=== PATIENT | male | born 1980 | race Two or more races ===

== ENCOUNTER 2024-01-14 19:38 | Emergency (ER) | payer SELFPAY ==
[~2024-01-14] VITALS: Ht 185.4 cm; Wt 90.7 kg
[2024-01-14 20:15] VITALS: BP 150/96; PULSE 90; RESP 18; TEMP 98; O2SAT 98
[2024-01-14] MEDS: FAMOTIDINE 20 MG TAB PO ONE (20:40)
[2024-01-14] MEDS: ONDANSETRON ODT 4 MG TAB PO ONE (20:40)
[2024-01-14] MEDS: KETOROLAC TROMETH 60MG/2ML VIAL IM ONE (20:40)
[2024-01-14] MEDS ORDERED: IBUP-1456 PO (21:42)
== END 2024-01-14 21:57 | disposition home or self-care (01) ==
LOC: ER 19:38 → EDBD 19:38 → ER 21:54
DX: G89.21 Chronic pain due to trauma (principal); M79.671 Pain in right foot; M79.672 Pain in left foot
CPT/HCPCS: 96372; 99283; J1885; Q0162

== ENCOUNTER 2024-03-26 10:34 | Emergency (ER) | payer MEDICAID, OTHER ==
[~2024-03-26] VITALS: Ht 180.3 cm; Wt 96.0 kg
[~2024-03-26 10:34] MED LIST: IBUP-1456 PO
[2024-03-26] MEDS: SODIUM CHLORIDE 0.9% 1,000 ML IV ONE ×3 (11:17→21:23)
[2024-03-26 11:23] LABS: Basophils # (auto) 0 10 ^3/uL (0-0.2); Basophils % (auto) 0.3 % (0.0-2.0); Eosinophils # (auto) 0.1 10 ^3/uL (0-0.8); Eosinophils % (auto) 0.9 % (0.0-7.0); Hematocrit 49.1 % (41.0-53.0); Hemoglobin 16.6 g/dL (13.5-17.5); Lymphocytes # (auto) 0.3 10 ^3/uL (0.4-5.4); Lymphocytes % (auto) 2.5 % (10.0-50.0); Mean Corpuscular Hemoglobin 31.6 pg (28.0-32.0); Mean Corpuscular Hgb Conc. 33.8 g/dL (32.0-36.0); Mean Corpuscular Volume 93.6 fL (80.0-100.0); Monocytes # (auto) 0.7 10 ^3/uL (0-1.3); Monocytes % (auto) 5.4 % (0.0-12.0); Neutrophils # (auto) 12.3 10 ^3/uL (1.6-8.6); Neutrophils % (auto) 90.9 % (37.0-80.0); Platelet Count (auto) 236 10^3/uL (140-450); Red Blood Cells 5.25 10^6/uL (4.5-5.90); Red Cell Distribution Width 14.3 % (11.8-14.3); White Blood Cell 13.6 10^3/uL (4.4-10.8)
[2024-03-26 11:28] VITALS: PULSE 74; RESP 22; O2SAT 95
--- NOTE | 2024-03-26 11:30 | ED.PDOC ---
History of Present Illness HPI Comments HPI: Poor Historian. 43-year-old male presents to emergency department for evaluation of generalized upper body aches. Patient admits to use of methamphetamine four days ago by smoking. Denies use of any other drugs or alcohol. Patient states that he feels dehydrated. Denies any focal complaint. Vitals: temp:98.3 RR: 18 02 sat: 98 % RA heart rate: 96 BP: 113/74 PMH: denies PSH: titanium rods in bilateral legs social history: denies tobacco use, denies ETOH use, endorses drug use(METH 4 days prior) medications: denies allergies: NKDA REVIEW OF SYSTEMS: CONSTITUTIONAL: Denies acute: fever, diaphoresis, chills, HEAD: Denies acute: headache, photophobia Eyes: Denies acute: Double vision, vision loss, eye pain, eye discharge. EARS: Denies acute: tinnitus, hearing loss, ear discharge, ear pain, THROAT: Denies acute: sore throat, swelling, difficulty swallowing , pain with swallowing, change in voice. NECK: Denies acute: neck pain, neck swelling, stiff neck. HEART: Denies acute : chest pain, palpitations, LUNGS: Denies acute: SOB, wheezing, cough, hemoptysis ABDOMEN: Denies acute: abdominal pain, Nausea, Vomiting, diarrhea, melena , hematemesis, hematochezia SKIN: Denies acute: rash, redness, lesions, itchiness. EXTREMITIES: Denies acute: calf pain, numbness, tingling, weakness, denies pain in extremity. Denies acute: Low back pain. Neuro: Denies acute: focal neurological deficit, motor or sensory focal neurological deficit, tremors, seizure like activity, confusion, dizziness, change in mental status, loss of bowel or bladder function, cauda equina like symptoms. : Denies acute: dysuria, hematuria, flank pain, increase in urinary frequency. PSYCH: Denies acute: hallucination, suicidal ideation, homicidal ideation. PHYSICAL EXAM: General: no acute distress, awake and alert. Head: normocephalic, atraumatic. Neck: supple, trachea is midline, no swelling. Throat: Normal phonation. Eyes:, no erythema, no purulent discharge, no proptosis, no icterus. Heart: regular rate, regular rhythm, no significant murmur appreciated. Lungs: no apparent respiratory distress, Able to speak in full sentences. No wheezing, no rhonchi, no crackles. No stridors Clear to auscultation bilaterally. Abdomen: non tender to palpation, non distended, soft, no guarding, no rebound, + bowel sounds. Neuro: Awake, Alert, oriented to name, self, situation, follows commands GCS=15. Speech is normal. Skin: no petechia, no purpura, no cyanosis, non-pale, not jaundice. Lower extremities: --no - Pitting edema no deformity, no focal swelling, no calf TTP. Makes eye contact. moves all four extremities. Face: no apparent facial droop. Ambulating in the ED independently. No nuchal rigidity, Kernig's sign, Brudzinski's sign, no meningeal signs. Chief Complaint: Abdominal Pain Time Seen by MD: 10:45 Primary Care Provider: none Reviewed Notes: Nurses Notes, Allergies Allergies: Coded Allergies: NO KNOWN ALLERGIES (Unverified , 03/26/24) Home Meds Active Scripts Ibuprofen (Ibuprofen) 800 Mg Tab, 800 MG PO Q8HP PRN for 7 Days, #21 TAB Prov:IRVING CORTEZ [facility] 01/14/24 Information Source: Patient Past Medical History PAST MEDICAL HISTORY: Denies Surgical History: Denies all surgeries Family History Family History: Reviewed,noncontributory to illness Social History Smoker: Non-Smoker Alcohol: Denies ETOH Use Drugs: Methamphetamine Lives In: Homeless Was a procedure done? Was a procedure done?: No Differential Dx Considerations may include: Includes but not limited to thyroid disease, encephalopathy, electrolyte abnormality, sepsis, infection, intracranial pathology, drug adverse effects, arrhythmia, kidney insufficiency, ACS, CVA, malignancy, anemia, rhabdomyolysis X-Ray, Labs, Meds, VS Vital Signs Date Time Temp Pulse Resp B/P (MAP) Pulse Ox O2 Delivery O2 Flow Rate FiO2 03/26/24 20:11 74 18 131/84 (100) 99 03/26/24 18:40 78 19 96 Room Air 03/26/24 17:55 98.1 78 19 135/85 (102) 96 98.1 03/26/24 14:55 98.0 64 18 125/86 (99) 99 98.0 03/26/24 11:28 74 22 95 Room Air* 0 21 03/26/24 11:27 98.4 74 22 127/76 (93) 95 98.4 03/26/24 10:42 98.3 96 18 113/74 (87) 98 Lab Test 03/26/24 22:02 03/26/24 20:03 03/26/24 19:10 03/26/24 13:48 Range/Units Lactic Acid Level 1.8 2.2 *H 2.6 *H 0.4-2.0 mmol/L Urine Color Light-yellow Yellow Urine Clarity Clear Clear Urine pH 6.5 5.0-9.0 Urine Specific Piffard 1.012 1.001-1.035 Urine Protein Negative Negative Urine Ketones Negative Negative Urine Blood Negative Negative /uL Urine Nitrite Negative Negative Urine Bilirubin Negative Negative Urine Urobilinogen Normal Negative mg/dL Urine Leukocyte Esterase Negative Negative /uL Urine RBC None seen 0 - 3 /hpf Urine WBC 1 0 - 3 /hpf Urine Squamous Epithelial Cells None seen <5 /hpf Urine Bacteria None seen None Seen /hpf Urine Glucose Normal Normal mg/dL Urine Opiates Screen Neg NEGATIVE Urine Fentanyl Screen Neg NEGATIVE Urine Barbiturates Screen Neg NEGATIVE Urine Phencyclidine Screen Neg NEGATIVE Urine Amphetamines Screen Pos NEGATIVE Urine Benzodiazepines Screen Neg NEGATIVE Urine Cocaine Screen Neg NEGATIVE Urine Cannabinoids Screen Neg NEGATIVE Test 03/26/24 10:07 Range/Units White Blood Count 13.6 H 4.4-10.8 10^3/uL Red Blood Count 5.25 4.5-5.90 10^6/uL Hemoglobin 16.6 13.5-17.5 g/dL Hematocrit 49.1 41.0-53.0 % Mean Corpuscular Volume 93.6 80.0-100.0 fL Mean Corpuscular Hemoglobin 31.6 28.0-32.0 pg Mean Corpuscular Hemoglobin Concent 33.8 32.0-36.0 g/dL Red Cell Distribution Width 14.3 11.8-14.3 % Platelet Count 236 140-450 10^3/uL Mean Platelet Volume 8.4 6.9-10.8 fL Neutrophils (%) (Auto) 90.9 H 37.0-80.0 % Lymphocytes (%) (Auto) 2.5 L 10.0-50.0 % Monocytes (%) (Auto) 5.4 0.0-12.0 % Eosinophils (%) (Auto) 0.9 0.0-7.0 % Basophils (%) (Auto) 0.3 0.0-2.0 % Neutrophils # (Auto) 12.3 H 1.6-8.6 10 ^3/uL Lymphocytes # (Auto) 0.3 L 0.4-5.4 10 ^3/uL Monocytes # (Auto) 0.7 0-1.3 10 ^3/uL Eosinophils # (Auto) 0.1 0-0.8 10 ^3/uL Basophils # (Auto) 0 0-0.2 10 ^3/uL Nucleated Red Blood Cells 0.0 % Sodium Level 137 136-145 mmol/L Potassium Level 4.0 3.5-5.1 mmol/L Chloride Level 102 98-107 mmol/L Carbon Dioxide Level 26 20-31 mmol/L Anion Gap 9 5-15 Blood Urea Nitrogen 18 9-23 mg/dL Creatinine 1.26 0.700-1.30 mg/dL Glomerular Filtration Rate Calc 73 >90 mL/min BUN/Creatinine Ratio 14.3 10.0-20.0 Serum Glucose 109 H 74-106 mg/dL Lactic Acid Level 2.6 *H 0.4-2.0 mmol/L Calcium Level 10.4 8.7-10.4 mg/dL Magnesium Level 2.1 1.6-2.6 mg/dL Total Bilirubin 0.8 0.2-1.0 mg/dL Aspartate Amino Transferase (AST) 28 13-40 U/L Alanine Aminotransferase (ALT) 39 7-40 U/L Alkaline Phosphatase 116 46-116 U/L Creatine Kinase 153 46-171 U/L Troponin I High Sensitivity < 3 L </=54 ng/L Total Protein 7.9 5.7-8.2 g/dL Albumin 4.9 H 3.2-4.8 g/dL Lipase 48 12-53 U/L Current Medications Medications (Trade) Dose Ordered Sig/Sean Route Start Time Stop Time Status Last Admin Sodium Chloride 1,000 ml @ 1,000 mls/hr Q1H ONCE IV 03/26/24 11:00 03/26/24 11:59 DC 03/26/24 11:24 Lorazepam (Ativan Inj) 1 mg ONCE ONCE IV 03/26/24 11:30 03/26/24 11:31 DC 03/26/24 11:36 Sodium Chloride 1,000 ml @ 1,000 mls/hr Q1H ONCE IV 03/26/24 14:30 03/26/24 15:29 DC 03/26/24 16:14 Sodium Chloride 1,000 ml @ 1,000 mls/hr Q1H ONCE IV 03/26/24 21:30 03/26/24 22:29 DC 03/26/24 21:23 [place] [id number] Ph: [phone] DIAGNOSTIC IMAGING Diagnostic Imaging Report : [id number] Signed PATIENT: ASIM CASTRO JRACCT: [id number] UNIT: [id number] : 1980 LOC: ER ROOM / BED: / AGE / SEX: 43 / M ADM STATUS: REG ER SERVICE 36 ORDERING PHYSICIAN: YUN SANCHEZ DO PROCEDURE(s): CXRP - CHEST PORTABLE REASON: chills ORDER NUMBER(s): [id number], ACCESSION NUMBER(s): [id number] CHEST RADIOGRAPH Indication: chills Technique: Single frontal view of the chest was obtained COMPARISON: None FINDINGS: Lines and Tubes: None Lungs: Clear Pleura: No effusion. No pneumothorax. Cardiomediastinal contours: Unremarkable Bones: Unremarkable IMPRESSION: 1. No acute disease. ATED BY: ALYCIA OLIVARES MD DICTATED DATE/TIME: 03/26/242028 SIGNED BY: ALYCIA OLIVARES MD SIGNED DATE/TIME: 03/26/242028 CC: Time of 1ST Reevaluation: 22:46 Reevaluation 1ST: Resolved Patient Education/Counseling: Diagnosis, Treatment Family Education/Counseling: No Family Present Comments Patient presented with the above HPI.--generalized body aches and tachycardic----workup was initiated. patient was found with the above mentioned diagnosis. Patient was given: Fluids and Ativan Patient ED course and VS have been stabilized. Patient has been reassessed in the ED and remained in a stable condition. Pertinent incidental findings were discussed with the patient and/or family. Patient/family voices understanding and is agreeable with plan. Patient has been observed in the ED adequate length of time to insure improvement/stability. patient was discharged home in a stable condition. All the reports of any imaging studies that were ordered by myself were reviewed by myself. Departure 1 Departure Time of Disposition: 20:42 Impression: Primary Impression: Homelessness Additional Impressions: Methamphetamine abuse Generalized body aches Dehydration Disposition: HOME / SELF CARE / HOMELESS Condition: Stable Additional Instructions: Additional discharge instructions: You MUST follow-up with your primary care/family doctor in 1 to 2 days. If you are unable to see your primary care/family doctor, please return to our emergency room for re-assessment and re-evaluation in 1 to 2 days. Return to the emergency room here in our facility or to the nearest ER [facility] if your symptoms change or worsen. CONSULTATIONS: you MUST Follow-up for consultation as soon as possible with: -cardiology in 1-2 days. Please call for appointment You MUST call the consultants office yourself to make an appointment. You may need to arrange that through your insurance and/or your primary/family doctor. If you are unable to see the qm consultant in 1 to 2 days, you must return to our emergency room (or any other ER of your choice) for re-assessment and re- evaluation. Adequate fluid hydration. Discharged With: Self Critical Care Note Critical Care Time?: No I personally scribed for YUN SANCHEZ DO ([email or web address]) on 03/26/24 at 11:30. Electronically submitted by Ailin Moe ([email or web address]). I personally scribed for YUN SANCHEZ DO ([email or web address]) on 03/26/24 at 11:44. Electronically submitted by Ailin Moe ([email or web address]). I personally scribed for YUN SANCHEZ DO ([email or web address]) on 03/26/24 at 19:57. Electronically submitted by Ailin Moe ([email or web address]). I personally scribed for YUN SANCHEZ DO ([email or web address]) on 03/26/24 at 21:09. Electronically submitted by Ailin Moe ([email or web address]). YUN SANCHEZ DO Mar 26, 2024 11:30
[2024-03-26] MEDS: LORazepam 2MG/ML-1ML VIAL IV ONE (11:36)
[2024-03-26 12:09] LABS: Alanine Aminotransferase 39 U/L (7-40); Albumin 4.9 g/dL (3.2-4.8); Alkaline Phosphatase 116 U/L (46-116); Anion Gap 9 (5-15); Aspartate Aminotransferase 28 U/L (13-40); BUN/Creatinine Ratio 14.3 (10.0-20.0); Blood Urea Nitrogen 18 mg/dL (9-23); Calcium 10.4 mg/dL (8.7-10.4); Carbon Dioxide 26 mmol/L (20-31); Chloride 102 mmol/L (98-107); Glucose 109 mg/dL (74-106); Lipase 48 U/L (12-53); Sodium 137 mmol/L (136-145)
[2024-03-26 12:10] LABS: Bilirubin, Total 0.8 mg/dL (0.2-1.0); Total Protein 7.9 g/dL (5.7-8.2)
[2024-03-26 12:14] LABS: Lactic Acid w/Reflex 2.6 mmol/L (0.4-2.0)
[2024-03-26 13:55] LABS: Magnesium 2.1 mg/dL (1.6-2.6)
[2024-03-26 19:11] LABS: Urine Bacteria None Seen /hpf (None Seen)
[2024-03-26 19:26] LABS: Urine Blood Negative /uL (Negative); Urine Clarity Clear (Clear); Urine Color Light-Yellow (Yellow); Urine Protein, UAD Negative (Negative); Urine Specific Gravity 1.012 (1.001-1.035); Urine Urobilinogen Normal (Negative); Urine WBC 1 /hpf (0 - 3); Urine pH 6.5 (5.0-9.0)
[2024-03-26 19:38] LABS: Amphetamine Screen, Urine Pos (NEGATIVE); Benzodiazephine Screen, Urine Neg (NEGATIVE)
[2024-03-26 19:39] LABS: Barbiturate Scree,Urine Neg (NEGATIVE); Cannabinoid Screen, Urine Neg (NEGATIVE); Cocaine Screen, Urine Neg (NEGATIVE); Opiate Scree,Urine Neg (NEGATIVE); Phencyclidine Screen, Urine Neg (NEGATIVE)
--- NOTE | 2024-03-26 20:31 | DVH ---
CHEST RADIOGRAPH Indication: chills Technique: Single frontal view of the chest was obtained COMPARISON: None FINDINGS: Lines and Tubes: None Lungs: Clear Pleura: No effusion. No pneumothorax. Cardiomediastinal contours: Unremarkable Bones: Unremarkable IMPRESSION: 1. No acute disease.
[2024-03-26 21:17] LABS: Lactic Acid w/Reflex 2.2 mmol/L (0.4-2.0)
[2024-03-26 23:15] VITALS: BP 128/88; PULSE 82; RESP 18; TEMP 98.7; O2SAT 96
== END 2024-03-26 23:15 | disposition home or self-care (01) ==
LOC: EDBD 10:34 → ER 10:34
DX: E86.0 Dehydration (principal); M79.10 Myalgia, unspecified site; F15.10 Other stimulant abuse, uncomplicated; Z59.00 Homelessness unspecified; Z79.899 Other long term (current) drug therapy
CPT/HCPCS: 36415; 71045; 80053; 80307; 81001; 82550; 83605; 83690; 83735; 84484; 85025; 96361; 96374; 99285; J2060; J7030

== ENCOUNTER 2025-02-27 16:22 | Emergency (ER) | payer MEDICAID ==
[~2025-02-27] VITALS: Ht 180.3 cm; Wt 90.9 kg
[2025-02-27] MEDS: ONDANSETRON ODT 4 MG TAB PO ONE (16:45)
[2025-02-27] MEDS: KETOROLAC TROMETH 60MG/2ML VIAL IM ONE (16:45)
--- NOTE | 2025-02-27 17:08 | ED.PDOC ---
History of Present Illness HPI Comments This is a homeless 44 year old male ALISSON presenting to the ED with chief complaint of flu-like symptoms. Patient reports that he has been experiencing body aches with associated cough, fever, nasal congestion, and generalized weakness for the past few days. Patient denies any N/V/D, abdominal pain, chills, chest pain, or SOB. Vital signs were stable on arrival. Chief Complaint: Flu like Time Seen by MD: 17:05 Primary Care Provider: none Reviewed Notes: Nurses Notes, Boarding Specialist Notes, Medications, Allergies Allergies: Coded Allergies: NO KNOWN ALLERGIES (Unverified , 03/26/24) Home Meds Active Scripts Ibuprofen (Ibuprofen) 800 Mg Tab, 800 MG PO Q8HP PRN for 7 Days, #21 TAB Prov:IRVING CORTEZ [facility] 01/14/24 Information Source: Patient, Emergency Med Personnel Mode of Arrival: EMS Severity: Moderate Timing: Days Duration: Since onset Prehospital treatment: None Past Medical History PAST MEDICAL HISTORY: Denies Surgical History: Denies all surgeries Family History Family History: Reviewed,noncontributory to illness Social History Smoker: Non-Smoker Alcohol: Denies ETOH Use Drugs: Methamphetamine Lives In: Homeless Constitutional: reports: fever, malaise, weakness; denies: chills, diaphoresis, fatigue, sweats, others EENTM: reports: nose congestion; denies: blurred vision, double vision, ear bleeding, ear discharge, ear drainage, ear pain, ear ringing, eye pain, eye re dness, hearing loss, mouth pain, mouth swelling, nasal discharge, nose bleeding, nose pain, photophobia, tearing, throat pain, throat swelling, voice changes, others Respiratory: reports: cough; denies: hemoptysis, orthopnea, SOB at rest, shortness of breath, SOB with excertion, stridor, wheezing, others Cardiovascular: denies: chest pain, dizzy spells, diaphoresis, Dyspnea on exertion, edema, irregular heart beat, left arm pain, lightheadedness, palpitations, PND, syncope, others Gastrointestinal: denies: abdomen distended, abdominal pain, blood streaked bowels, constipated, diarrhea, dysphagia, difficulty swallowing, hematemesis, melena, nausea, poor appetite, poor fluid intake, rectal bleeding, rectal pain, vomiting, others Genitourinary: denies: burning, dysuria, flank pain, frequency, hematuria, incontinence, penile discharge, penile sore, pain, testicle pain, testicle swelling, urgency, others Neurological: denies: dizziness, fainting, headache, left sided numbness, left sided weakness, numbness, paresthesia, pre-existing deficit, right sided numbness, right sided weakness, seizure, speech problems, tingling, tremors, weakness, others Musculoskeletal: denies: back pain, gout, joint pain, joint swelling, muscle pain, muscle stiffness, neck pain, others Integumetry: denies: bruises, change in color, change in hair/nails, dryness, laceration, lesions, lumps, rash, wounds, others Allergic/Immunocompromised: denies: Difficulty Healing, Frequent Infections, Hives, Itching, others Hematologic/Lymphatic: denies: anemia, blood clots, easy bleeding, easy bruising, swollen glands, others Endocrine: denies: excessive hunger, excessive sweating, excessive thirst, excessive urination, flushing, intolerance to cold, intolerance to heat, unexplained weight gain, unexplained weight loss, others Psychiatric: denies: anxiety, bipolar disorder, depression, hopeless, panic disorder, schizophrenia, sleepless, suicidal, others All Other Systems: Reviewed and Negative Physical Exam General Appearance: Mild Distress (Moderate distress due to the patient's concerns. Patient was not well kempt and dirty at time of evaluation.), Normal HEENT: Normal ENT Inspection, Pharynx Normal, TMs Normal Neck: Full Range of Motion, Non-Tender, Normal, Normal Inspection Respiratory: Chest Non-Tender, Lungs Clear, No Accessory Muscle Use, No Respiratory Distress, Normal Breath Sounds Cardiovascular: No Edema, No JVD, No Murmur, No Gallop, Normal Peripheral Pulses, Regular Rate/Rhythm Breast Exam: Deferred Gastrointestinal: Other (Diffuse nonspecific epigastric tenderness to palpation. No signs of trauma. No pulsatile masses.) Genitalia: Deferred Pelvic: Deferred Rectal: Deferred Extremities: No calf tenderness, Normal inspection, Non-tender Neurologic: Alert Cerebellar Function: NOT DONE Reflexes: NOT DONE Skin: Dry, Normal Color, Warm Lymphatic: No Adenopathy Was a procedure done? Was a procedure done?: No Differential Dx Considerations may include: Sepsis, electrolyte abnormality, pneumonia, viral upper respiratory illness X-Ray, Labs, Meds, VS Vital Signs Date Time Temp Pulse Resp B/P (MAP) Pulse Ox O2 Delivery O2 Flow Rate FiO2 02/27/25 20:15 98.7 99 16 110/77 (88) 97 98.7 02/27/25 16:22 98.6 92 20 140/74 97 98.6 Lab Test 02/27/25 17:11 Range/Units White Blood Count 11.0 H 4.4-10.8 10^3/uL Red Blood Count 4.65 4.5-5.90 10^6/uL Hemoglobin 14.8 13.5-17.5 g/dL Hematocrit 41.9 41.0-53.0 % Mean Corpuscular Volume 90.0 80.0-100.0 fL Mean Corpuscular Hemoglobin 31.7 28.0-32.0 pg Mean Corpuscular Hemoglobin Concent 35.3 32.0-36.0 g/dL Red Cell Distribution Width 13.2 11.8-14.3 % Platelet Count 281 140-450 10^3/uL Mean Platelet Volume 8.6 6.9-10.8 fL Neutrophils (%) (Auto) 76.2 37.0-80.0 % Lymphocytes (%) (Auto) 11.2 10.0-50.0 % Monocytes (%) (Auto) 11.0 0.0-12.0 % Eosinophils (%) (Auto) 0.9 0.0-7.0 % Basophils (%) (Auto) 0.7 0.0-2.0 % Neutrophils # (Auto) 8.4 1.6-8.6 10 ^3/uL Lymphocytes # (Auto) 1.2 0.4-5.4 10 ^3/uL Monocytes # (Auto) 1.2 0-1.3 10 ^3/uL Eosinophils # (Auto) 0.1 0-0.8 10 ^3/uL Basophils # (Auto) 0.1 0-0.2 10 ^3/uL Nucleated Red Blood Cells 0.0 % Sodium Level 132 L 136-145 mmol/L Potassium Level 3.5 3.5-5.1 mmol/L Chloride Level 98 98-107 mmol/L Carbon Dioxide Level 20 20-31 mmol/L Anion Gap 14 5-15 Blood Urea Nitrogen 20 9-23 mg/dL Creatinine 1.19 0.700-1.30 mg/dL Glomerular Filtration Rate Calc 77 >90 mL/min BUN/Creatinine Ratio 16.8 10.0-20.0 Serum Glucose 136 H 74-106 mg/dL Calcium Level 9.4 8.7-10.4 mg/dL Current Medications Medications (Trade) Dose Ordered Sig/Sean Route Start Time Stop Time Status Last Admin Ondansetron HCl (Zofran Po) 4 mg ONCE ONCE PO 02/27/25 16:45 02/27/25 16:46 DC 02/27/25 16:45 X-Ray, Labs, Meds, VS Comment All studies performed the ED were evaluated by me personally. Serum studies were unremarkable for any systemic concerns. Chest x-ray was unremarkable for any consolidation or intrapulmonary concerns. Patient appears to be having a viral upper respiratory illness. Advised Tylenol and or Motrin as well as good hydration and healthy nutrition throughout illness event. Time of 1ST Reevaluation: 22:04 Reevaluation 1ST: Improved Consultation: PCP Patient Education/Counseling: Diagnosis, Treatment Family Education/Counseling: Diagnosis, Treatment, No Family Present SEPSIS Sepsis Screen Recent Procedure: No On Antibiotic Therapy: No Respiratory Rate >20: No Heart Rate >90: No Temp<36 C (96.8 F) or >38.3 C: No SBP <90 or MAP <65 mmHG: No New Acute Mental Status Change: No Is the patient on CPAP, BIPAP,: No IV fluid challenge completed?: No Physician Orders Covid19 Antigen Yana (02/27/25 ) Rapid Influenza A&B (02/27/25 16:41) Urinalysis (02/27/25 16:41) Chest Portable (02/27/25 16:41) Vital Signs Date Time Temp Pulse Resp B/P (MAP) Pulse Ox O2 Delivery O2 Flow Rate FiO2 02/27/25 20:15 98.7 99 16 110/77 (88) 97 98.7 02/27/25 16:22 98.6 92 20 140/74 97 98.6 Laboratory Tests Test 02/27/25 17:11 White Blood Count 11.0 10^3/uL (4.4-10.8) H Medications Medications Dose Ordered Sig/Sean Route Start Time Stop Time Status Last Admin Dose Admin Ondansetron HCl 4 mg ONCE ONCE PO 02/27/25 16:45 02/27/25 16:46 DC 02/27/25 16:45 Departure 1 Departure Time of Disposition: 22:05 Impression: Primary Impression: Viral upper respiratory illness Disposition: HOME / SELF CARE / HOMELESS Condition: Stable Additional Instructions: Advised Tylenol and or Motrin as needed for symptomatic relief as well as good hydration and healthy nutrition throughout illness event. e-Prescriptions Ondansetron Odt 4MG Tab (ZOFRAN PO) 4 Mg Tb 4 MG PO Q6HP PRN, #15 TAB ODT TAB-DISSOLVE IN MOUTH, THEN SWALLOW Prov: MAYDA GUY PAC 02/27/25 Acetaminophen (Acetaminophen) 500 Mg Tab 500 MG PO Q4HP PRN, #30 TAB Prov: MAYDA GUY PAC 02/27/25 Discharged With: Self Critical Care Note Critical Care Time?: No Stability Stability form required: No Heart Score Heart Score: Heart Score Response (Comments) Value History N/A 0 EKG N/A 0 Age N/A 0 Risk Factors N/A 0 Troponin N/A 0 Total 0 I personally scribed for MAYDA GUY PAC ([email or web address]) on 02/27/25 at 17:08. Electronically submitted by Long Verduzco ([email or web address]). MAYDA GUY PAC Feb 27, 2025 17:08
[2025-02-27 17:23] LABS: Hematocrit 41.9 % (41.0-53.0); Hemoglobin 14.8 g/dL (13.5-17.5); Mean Corpuscular Hemoglobin 31.7 pg (28.0-32.0); Mean Corpuscular Volume 90.0 fL (80.0-100.0); Nucleated Red Blood Cells % 0.0 %
[2025-02-27 17:29] LABS: Anion Gap 14 (5-15); Calcium 9.4 mg/dL (8.7-10.4); Carbon Dioxide 20 mmol/L (20-31)
[2025-02-27 17:30] LABS: Chloride 98 mmol/L (98-107); Potassium 3.5 mmol/L (3.5-5.1); Sodium 132 mmol/L (136-145)
[2025-02-27 17:35] LABS: BUN/Creatinine Ratio 16.8 (10.0-20.0); Blood Urea Nitrogen 20 mg/dL (9-23)
[2025-02-27 18:10] LABS: Glucose 136 mg/dL (74-106)
[2025-02-27 20:15] VITALS: BP 110/77; PULSE 99; RESP 16; TEMP 98.7; O2SAT 97
[2025-02-27] MEDS ORDERED: ZOFR4T PO (22:06)
[2025-02-27] MEDS ORDERED: ACET500T58 PO (22:06)
--- NOTE | 2025-03-03 07:34 | DVH ---
INDICATION: Cough/shortness a breath TECHNIQUE: Frontal view of the chest. COMPARISON: XY CHEST PORTABLE on DOS: 03/26/24 FINDINGS: . The heart and mediastinal contours are grossly unremarkable. There is no evidence of pleural disease. The lungs are clear. The bony structures of the chest are intact without fracture. IMPRESSION: 1. No evidence of acute disease. [employer] O[employer]ATOR SAIGE
== END 2025-02-27 23:02 | disposition left against medical advice (07) ==
LOC: EDBD 16:22 → ER 16:22
DX: J06.9 Acute upper respiratory infection, unspecified (principal); B97.89 Other viral agents as the cause of diseases classified elsewhere
CPT/HCPCS: 36415; 71045; 80048; 85025; 99284; Q0162; J1885